=== PATIENT | male | born 1960 | race Caucasian/White ===

== ENCOUNTER 2018-11-19 21:55 | Emergency (ER) | payer OTHER ==
[~2018-11-19] VITALS: Ht 180.3 cm; Wt 108.9 kg
[2018-11-19 22:00] VITALS: BP_SYST 154
[2018-11-20] MEDS ORDERED: IBUPROFEN 800 MG TABLET PO ONE (00:45)
[2018-11-20 01:10] VITALS: BP_SYST 140
== END 2018-11-20 01:20 | disposition home or self-care (01) ==
LOC: SED 21:55
DX: S63.501A Unspecified sprain of right wrist, initial encounter (principal); R03.0 Elevated blood-pressure reading, without diagnosis of hypertension; Z86.73 Personal history of transient ischemic attack (TIA), and cerebral infarction without residual deficits; W19.XXXA Unspecified fall, initial encounter; Y93.89 Activity, other specified; Y92.89 Other specified places as the place of occurrence of the external cause; Y99.8 Other external cause status
CPT/HCPCS: 99283

== ENCOUNTER 2023-09-16 06:34 | Emergency (ER) | payer MEDICARE, OTHER ==
[~2023-09-16] VITALS: Ht 177.8 cm; Wt 99.8 kg
[2023-09-16 06:41] VITALS: BP_SYST 143; PULSE 66; RESP 18; O2SAT 97
[2023-09-16] MEDS ORDERED: LIDOCAINE 2%, 20 ML MDV INJ ONE (08:00)
[2023-09-16] MEDS ORDERED: BACITRACIN ZINC 15 GM TOPICAL OINTMENT TP ONE (09:30)
[2023-09-16] MEDS ORDERED: BACITRACIN 1 GM OINT TP ONE (09:30)
[2023-09-16] MEDS ORDERED: BACI15OI13 TP (09:31)
[2023-09-16 09:41] VITALS: BP_SYST 154; PULSE 66; RESP 16; TEMP 98.6; O2SAT 98
== END 2023-09-16 09:40 | disposition home or self-care (01) ==
LOC: SED 06:34
DX: S60.211A Contusion of right wrist, initial encounter (principal); S50.811A Abrasion of right forearm, initial encounter; M25.431 Effusion, right wrist; Z79.899 Other long term (current) drug therapy; W18.40XA Slipping, tripping and stumbling without falling, unspecified, initial encounter; Y93.89 Activity, other specified; Y92.89 Other specified places as the place of occurrence of the external cause; Y99.8 Other external cause status
CPT/HCPCS: 96372; 99284